=== PATIENT | male | born 1945 | race Two or more races ===

== ENCOUNTER → 2016-07-17 | Day surgery (SDC) | payer MEDICARE, MEDICAID ==
[~2016-07-17] VITALS: Ht 165.1 cm; Wt 94.2 kg
[~2016-07-17] MED LIST: ARICEPT10 MG PO; DELTASONE5 MG PO; DILANTIN100 MG PO; FERGON325 M1 PO; FERROUS GLUCON324 M1 PO; K-TAB 10MEQ10 MEQ PO; LASIX40 MG PO; LOPRESSOR50 MG PO; NORVASC2.5 MG PO; PROTONIX40 MG PO; ZYLOPRIM100 MG PO
== END ==
LOC: GPOC 07-16 16:00 → GEND 06:52
PROC: 0DB68ZX Excision of Stomach, Via Natural or Artificial Opening Endoscopic, Diagnostic (ICD-10-PCS; principal; 2016-07-17)
DX: K21.0 Gastro-esophageal reflux disease with esophagitis (principal); Z79.899 Other long term (current) drug therapy
CPT/HCPCS: J2001; J7030

== ENCOUNTER → 2016-10-17 | Day surgery (SDC) | payer MEDICARE, MEDICAID ==
[~2016-10-17] VITALS: Ht 165.1 cm; Wt 95.5 kg
== END | disposition disaster alternative care site (69) ==
LOC: GPOC 10-11 09:00 → GEND 06:56 → GPOC 07:00
PROC: 0DJ08ZZ Inspection of Upper Intestinal Tract, Via Natural or Artificial Opening Endoscopic (ICD-10-PCS; principal; 2016-10-17)
DX: K22.8 Other specified diseases of esophagus (principal); I25.10 Atherosclerotic heart disease of native coronary artery without angina pectoris; E78.5 Hyperlipidemia, unspecified; R56.9 Unspecified convulsions
CPT/HCPCS: J2001; J7030